=== PATIENT | female | born 1965 | race Caucasian/White ===

== ENCOUNTER 2019-09-16 15:24 | Emergency (ER) | payer OTHER ==
[2019-09-16] MEDS ORDERED: Sodium Chloride 0.9% 10 ML Syringe FLUSH PRN (15:50)
[2019-09-16] MEDS ORDERED: Sodium Chloride 0.9% 1,000 ML IV SCH (16:00)
--- NOTE | 2019-09-16 16:33 | EDM.PDOC ---
ED HPI GENERAL MEDICAL PROBLEM - General Chief Complaint: General Stated Complaint: SYNCOPE Time Seen by Provider: 09/16/19 15:49 Source of Information: Reports: Patient, Family (), RN Notes Reviewed - History of Present Illness INITIAL COMMENTS - FREE TEXT/NARRATIVE: 54 yr old female has been brought here by after coming home, finding his lying on the floor, confused, not sure how she ended up lying on the floor. She does have hx of stage 4 metastatic lung cancer first diagnosed about 6 1/2 yrs ago. She is on "immunotherapy" once a month. She just finished about 15 days of radiation to R lower chest, R upper abd about 10 days ago. According to her appetite has been decreased. Occasional cough. Vomited yesterday but has not been vomiting today. She does not feel short of breath at this time. - Related Data Allergies Allergy/AdvReac Type Severity Reaction Status Date / Time No Known Allergies Allergy Verified 09/16/19 15:52 Home Meds: Home Meds Gabapentin [Neurontin] 600 cap PO BEDTIME 09/20/13 [History] Ondansetron [Zofran Odt] 1 tab PO Q8HR PRN 09/16/19 [History] oxyCODONE ER [OxyCONTIN] 10 mg PO BID 09/16/19 [History] prednisoLONE Acetate [Prednisolone Acetate] 1 drop OP TID 09/16/19 [History] Past Medical History Other HEENT History: dry eyes, "watering constantly"--has abnormality behind R) eye--is being sent to specialist in September. Cardiovascular History: Reports: None Other Respiratory History: lung CA Other Gastrointestinal History: states has occ constipation/diarrhea with new chemo meds. Radiation to lower abdomen, targeting pancreas area. Genitourinary History: Reports: Other (See Below) Other Genitourinary History: Hematuria. 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 Social & Family History - Tobacco Use Smoking Status *Q: Never Smoker - Caffeine Use Caffeine Use: Reports: None - Recreational Drug Use Recreational Drug Use: Yes Recreational Drug Type: Reports: Marijuana/Hashish Other Recreational Drug Type: Medical Marijuana ED ROS GENERAL - Review of Systems Review Of Systems: See Below (pt is somewhat confused, she does answer simple questions but question accuracy of information, most of the info is coming from her ) Constitutional: Denies: Fever, Chills HEENT: Denies: Sinus Problem, Throat Pain Respiratory: Reports: Cough. Denies: Shortness of Breath, Sputum Cardiovascular: Denies: Chest Pain Endocrine: Reports: Fatigue GI/Abdominal: Reports: Decreased Appetite, Vomiting (yesterday). Denies: Abdominal Pain Musculoskeletal: Denies: Neck Pain, Back Pain, Leg Pain, Joint Pain Skin: Denies: Bruising Neurological: Reports: Confusion, Dizziness, Weakness. Denies: Numbness, Tingling, Trouble Speaking ED EXAM, GENERAL - Physical Exam Exam: See Below General Appearance: Alert, No Apparent Distress Eye Exam: Bilateral Eye: PERRL Ear Exam: Bilateral Ear: Auricle Normal Nose: Normal Inspection Throat/Mouth: Normal Inspection Head: Atraumatic Neck: Supple Respiratory/Chest: No Respiratory Distress, Lungs Clear, Normal Breath Sounds Cardiovascular: Regular Rate, Rhythm GI/Abdominal: Soft, Non-Tender Extremities: Normal Inspection, Normal Range of Motion Neurological: Alert, Disoriented (thinks it is February), Other (she does answer simple questions, obeys simple commands) Skin Exam: Warm, Dry, Normal Color, No Rash Course - Vital Signs Last Recorded V/S: Last Vital Signs Temp 98.0 F 09/16/19 18:29 Pulse 92 09/16/19 18:29 Resp 16 09/16/19 18:29 BP 117/52 L 09/16/19 18:29 Pulse Ox 100 09/16/19 18:29 - Orders/Labs/Meds Orders: Active Orders 24 hr Category Date Time Status EKG 12 Lead [EKG Documentation Completion] [RC] STAT Care 09/16/19 15:50 Active Peripheral IV Care [RC] . DIRECTED Care 09/16/19 15:51 Active CULTURE URINE [RM] Stat Lab 09/16/19 16:14 Received Sodium Chloride 0.9% [Normal Saline] 1,000 ml Med 09/16/19 16:00 Active IV ONETIME Sodium Chloride 0.9% [Saline Flush] Med 09/16/19 15:50 Active 10 ml FLUSH ASDIRECTED PRN Peripheral IV Insertion Adult [OM.PC] Stat Oth 09/16/19 15:50 Ordered Medication Orders Sodium Chloride (Normal Saline) 1,000 mls @ 999 mls/hr IV ONETIME BRITNEY Last Admin: 09/16/19 16:20 Dose: 999 mls/hr Documented by: JESS Sodium Chloride (Saline Flush) 10 ml FLUSH ASDIRECTED PRN PRN Reason: Keep Vein Open Last Admin: 09/16/19 16:20 Dose: 10 ml Documented by: JESS Labs: Laboratory Tests 09/16/19 09/16/19 09/16/19 Range/Units 16:00 16:00 16:00 WBC 4.10 (3.98-10.04) K/mm3 RBC 4.51 (3.98-5.22) M/mm3 Hgb 12.2 (11.2-15.7) gm/dl Hct 36.7 (34.1-44.9) % MCV 81.4 D (79.4-94.8) fl MCH 27.1 (25.6-32.2) pg MCHC 33.2 (32.2-35.5) g/dl RDW Std Deviation 51.7 H (36.4-46.3) fL Plt Count 117 L (182-369) K/mm3 MPV 9.5 (9.4-12.3) fl Neutrophils % (Manual) 90 H (40-60) % Band Neutrophils % 0 (0-10) % Lymphocytes % (Manual) 7 L (20-40) % Atypical Lymphs % 0 % Monocytes % (Manual) 3 (2-10) % Eosinophils % (Manual) 0 L (0.7-5.8) % Basophils % (Manual) 0 L (0.1-1.2) Platelet Estimate Decreased Plt Morphology Comment See note Poikilocytosis 1+ slight Ovalocytes 1+ slight RBC Morph Comment Not Reportable Sodium 141 (136-145) mEq/L Potassium 4.0 (3.5-5.1) mEq/L Chloride 102 (98-107) mEq/L Carbon Dioxide 25 (21-32) mEq/L Anion Gap 18.0 H (5-15) BUN 15 (7-18) mg/dL Creatinine 0.7 (0.55-1.02) mg/dL Est Cr Clr Drug Dosing 68.11 mL/min Estimated GFR (MDRD) > 60 (>60) mL/min BUN/Creatinine Ratio 21.4 H (14-18) Glucose 103 (74-106) mg/dL Lactic Acid (0.4-2.0) mmol/L Calcium 9.5 (8.5-10.1) mg/dL Magnesium 1.6 L (1.8-2.4) mg/dl Total Bilirubin 1.1 H (0.2-1.0) mg/dL AST 18 (15-37) U/L ALT 16 (14-59) U/L Alkaline Phosphatase 65 (46-116) U/L C-Reactive Protein 0.5 (<1.0) mg/dL Total Protein 7.0 (6.4-8.2) g/dl Albumin 3.6 (3.4-5.0) g/dl Globulin 3.4 gm/dL Albumin/Globulin Ratio 1.1 (1-2) Urine Color (Yellow) Urine Appearance (Clear) Urine pH (5.0-8.0) Ur Specific [place] (1.005-1.030) Urine Protein (Negative) Urine Glucose (UA) (Negative) Urine Ketones (Negative) Urine Occult Blood (Negative) Urine Nitrite (Negative) Urine Bilirubin (Negative) Urine Urobilinogen (0.2-1.0) Ur Leukocyte Esterase (Negative) Urine RBC (0-5) /hpf Urine WBC (0-5) /hpf Ur Squamous Epith Cells (0-5) /hpf Urine Bacteria (FEW) /hpf Urine Mucus (FEW) /hpf COVID-19 (NADEEN) (NEGATIVE) 09/16/19 09/16/19 09/16/19 Range/Units 16:00 16:14 18:33 WBC (3.98-10.04) K/mm3 RBC (3.98-5.22) M/mm3 Hgb (11.2-15.7) gm/dl Hct (34.1-44.9) % MCV (79.4-94.8) fl MCH (25.6-32.2) pg MCHC (32.2-35.5) g/dl RDW Std Deviation (36.4-46.3) fL Plt Count (182-369) K/mm3 MPV (9.4-12.3) fl Neutrophils % (Manual) (40-60) % Band Neutrophils % (0-10) % Lymphocytes % (Manual) (20-40) % Atypical Lymphs % % Monocytes % (Manual) (2-10) % Eosinophils % (Manual) (0.7-5.8) % Basophils % (Manual) (0.1-1.2) Platelet Estimate Plt Morphology Comment Poikilocytosis Ovalocytes RBC Morph Comment Sodium (136-145) mEq/L Potassium (3.5-5.1) mEq/L Chloride (98-107) mEq/L Carbon Dioxide (21-32) mEq/L Anion Gap (5-15) BUN (7-18) mg/dL Creatinine (0.55-1.02) mg/dL Est Cr Clr Drug Dosing mL/min Estimated GFR (MDRD) (>60) mL/min BUN/Creatinine Ratio (14-18) Glucose (74-106) mg/dL Lactic Acid 1.3 (0.4-2.0) mmol/L Calcium (8.5-10.1) mg/dL Magnesium (1.8-2.4) mg/dl Total Bilirubin (0.2-1.0) mg/dL AST (15-37) U/L ALT (14-59) U/L Alkaline Phosphatase (46-116) U/L C-Reactive Protein (<1.0) mg/dL Total Protein (6.4-8.2) g/dl Albumin (3.4-5.0) g/dl Globulin gm/dL Albumin/Globulin Ratio (1-2) Urine Color Yellow (Yellow) Urine Appearance Clear (Clear) Urine pH 7.5 (5.0-8.0) Ur Specific [place] 1.020 (1.005-1.030) Urine Protein 1+ H (Negative) Urine Glucose (UA) Negative (Negative) Urine Ketones 3+ H (Negative) Urine Occult Blood Negative (Negative) Urine Nitrite Negative (Negative) Urine Bilirubin 1+ H (Negative) Urine Urobilinogen 1.0 (0.2-1.0) Ur Leukocyte Esterase Trace H (Negative) Urine RBC 0-5 (0-5) /hpf Urine WBC 0-5 (0-5) /hpf Ur Squamous Epith Cells 0-5 (0-5) /hpf Urine Bacteria Few (FEW) /hpf Urine Mucus Few (FEW) /hpf COVID-19 (NADEEN) Negative (NEGATIVE) Meds: Medications Generic Name Dose Route Start Last Admin Trade Name Freq PRN Reason Stop Dose Admin Sodium Chloride 1,000 mls @ 999 mls/hr 09/16/19 16:00 09/16/19 16:20 Normal Saline IV 999 mls/hr ONETIME BRITNEY Administration Sodium Chloride 10 ml 09/16/19 15:50 09/16/19 16:20 Saline Flush FLUSH 10 ml ASDIRECTED PRN Administration Keep Vein Open - Re-Assessments/Exams Free Text/Narrative Re-Assessment/Exam: 09/16/19 18:35. Head CT has come back showing multiple areas of hemorhage, 2 on the right, 2 on the left, frontal, temporal and parietal into or volume depleted areas of brain from prior radiation therapy, see Radiology report for details. There is also a small intraparenchymal area of hemorrhage R cerebellum. She is moderately dehydrated, anion gap 18. She has not been eating, she has 3 plus ketones in her urine. Have discussed with Dr Taylor, Hospitalist oncology technician that does accept patient for admission. We will send her by ground ambulance. Departure - Departure Time of Disposition: 19:15 Disposition: DC/Tfer to Acute Hospital 02 Condition: Serious Clinical Impression: Intracerebral hemorrhage Qualifiers: Cerebral hemorrhage location: unspecified cerebral location Laterality: unspecified laterality Lung cancer Qualifiers: Laterality: right Lung location: lower lobe of lung Qualified Code(s): C34.31 - Malignant neoplasm of lower lobe, right bronchus or lung Altered mental status Qualifiers: Altered mental status type: disorientation Qualified Code(s): R41.0 - Disorientation, unspecified - Discharge Information Referrals: James Garcia MD [Primary Care Provider] - Forms: ED Department Discharge Sepsis Event Note (ED) - Evaluation Sepsis Screening Result: No Definite Risk - Focused Exam Vital Signs: Vital Signs Temp Pulse Resp BP Pulse Ox 09/16/19 18:29 98.0 F 92 16 117/52 L 100 09/16/19 17:38 84 16 98 09/16/19 15:45 97.5 F 96 20 102/69 98 - My Orders Last 24 Hours: My Active Orders 09/16/19 15:50 EKG 12 Lead [EKG Documentation Completion] [RC] STAT Sodium Chloride 0.9% [Saline Flush] 10 ml FLUSH ASDIRECTED PRN Peripheral IV Insertion Adult [OM.PC] Stat 09/16/19 15:51 Peripheral IV Care [RC] . DIRECTED 09/16/19 16:00 Sodium Chloride 0.9% [Normal Saline] 1,000 ml IV ONETIME 09/16/19 16:14 CULTURE URINE [RM] Stat - Assessment/Plan Last 24 Hours: My Active Orders 09/16/19 15:50 EKG 12 Lead [EKG Documentation Completion] [RC] STAT Sodium Chloride 0.9% [Saline Flush] 10 ml FLUSH ASDIRECTED PRN Peripheral IV Insertion Adult [OM.PC] Stat 09/16/19 15:51 Peripheral IV Care [RC] . DIRECTED 09/16/19 16:00 Sodium Chloride 0.9% [Normal Saline] 1,000 ml IV ONETIME 09/16/19 16:14 CULTURE URINE [RM] Stat
--- NOTE | 2019-09-16 17:19 | CT ---
Head CT Technique: Multiple axial sections through the brain were obtained. Intravenous contrast was not utilized. Comparison: Previous head CT study of 04/22/13. Findings: Diffuse diminished density is seen throughout the periventricular and subcortical white matter as well as within the cerebellar white matter. Small area of hemorrhage is noted within the right cerebellar hemisphere measuring 1.3 cm. Fluid blood area is noted within the left anterior temporal and posterior frontal region. Overall area is 4.2 cm with area of hemorrhage having a maximum measurement of 2.1 cm. Additional blood fluid level is seen within the right posterior parietal and occipital region. Overall measurement of this finding is 3.5 cm with the blood measuring up to 2.3 cm. There is effacement of the posterior and occipital horn of the right lateral ventricle. Midline shift is seen measuring up to 8 mm. Impression: 1. Diffusely abnormal head CT study. 2. Diffuse diminished density within the subcortical and periventricular white matter as well as white matter within the cerebellum. Please correlate if this represents demyelination from radiation or chemotherapy. 3. Cystic areas with blood fluid levels within the posterior left frontal and temporal region, right occipital and parietal region and additional parenchymal hemorrhage within the right occipital lobe. Measurements as noted above. 4. Midline shift up to 8 mm. Diagnostic code #5 This report was dictated in MDT
--- NOTE | 2019-09-16 17:19 | CR ---
Chest: Portable view of the chest was obtained. Comparison: Prior chest x-ray of 06/20/13. Heart size and mediastinum are normal. Slight scarring seen within the right upper lung. Lungs are clear with no acute parenchymal change. Bony structures are grossly intact. Infusion catheter is seen. Impression: 1. Findings as noted above. 2. Nothing acute is appreciated on portable chest x-ray. Diagnostic code #2 This report was dictated in MDT
[2019-09-16] MEDS ORDERED: Magnesium Hydroxide 400 MG/5 ML Susp 30 ML Cup PO ONE (17:42)
[2019-09-16 18:29] VITALS: BP 117/52; PULSE 92
== END 2019-09-16 19:47 ==
LOC: JD.ED 15:24
DX: S06.309A Unspecified focal traumatic brain injury with loss of consciousness of unspecified duration, initial encounter (principal); C34.91 Malignant neoplasm of unspecified part of right bronchus or lung; W19.XXXA Unspecified fall, initial encounter; Z20.828 Contact with and (suspected) exposure to other viral communicable diseases; Z79.899 Other long term (current) drug therapy
CPT/HCPCS: 36415; 70450; 71045; 80053; 81001; 83605; 83735; 85007; 85027; 86140; 87086; 87635; 93005; 96360; 99285; J7030; 93010; U0002